=== PATIENT | female | born 1960 | race Caucasian/White ===

== ENCOUNTER 2017-03-26 13:45 | Emergency (ER) | payer OTHER ==
[~2017-03-26] VITALS: Ht 157.5 cm; Wt 74.8 kg
[~2017-03-26 13:45] MED LIST: LORA1TAB82 PO
[2017-03-26 14:11] VITALS: BP 157/65
== END 2017-03-26 14:31 | disposition home or self-care (01) ==
LOC: ER 13:46
DX: F41.9 Anxiety disorder, unspecified (principal); M54.30 Sciatica, unspecified side
CPT/HCPCS: 99284; A4606; Z7610

== ENCOUNTER 2020-07-12 13:49 | Emergency (ER) | payer OTHER ==
[~2020-07-12] VITALS: Ht 157.5 cm; Wt 83.9 kg
[~2020-07-12 13:49] MED LIST changes: +LORA-259 PO; -LORA1TAB82 PO
[2020-07-12 13:53] VITALS: BP 145/72
--- NOTE | 2020-07-12 14:00 | NUR ---
URINE SPECIMEN COLLECTED AND SENT TO LAB.
[2020-07-12 14:04] LABS: APPEARANCE,URINE Clear (CLEAR); BILIRUBIN,URINE Negative (NEGATIVE); BLOOD, URINE Small Ery/uL (NEGATIVE); COLOR,URINE Yellow (YELLOW); KETONES,URINE Negative (NEGATIVE); LEUKOCYTE ESTERASE ,URINE Negative (NEGATIVE); NITRITE, URINE Negative (NEGATIVE); PROTEIN,URINE Negative (NEGATIVE); UGLUCOSE Negative (NEGATIVE); UROBILINOGEN,URINE 0.2 EU/dL (0.2)
[2020-07-12 14:13] LABS: BACTERIA,URINE None seen /HPF (None Seen); SQUAMOUS EPITHELIAL CELL,UR Few /HPF (None Seen); WBC,URINE 0-1 /HPF (0-3)
--- NOTE | 2020-07-12 14:48 | NUR ---
Patient discharged to home in stable condition. Written and verbal after care instructions given. Patient verbalizes understanding of instruction.
== END 2020-07-12 14:49 | disposition home or self-care (01) ==
LOC: ER 13:54
DX: R30.0 Dysuria (principal); F41.9 Anxiety disorder, unspecified; Z79.899 Other long term (current) drug therapy
CPT/HCPCS: 81000-TC; 84703-TC

== ENCOUNTER 2020-08-03 14:46 | Emergency (ER) | payer OTHER ==
[~2020-08-03] VITALS: Ht 157.5 cm; Wt 70.3 kg
[2020-08-03 14:52] VITALS: BP 136/73
== END 2020-08-03 15:39 | disposition home or self-care (01) ==
LOC: ER 14:46
DX: F41.0 Panic disorder [episodic paroxysmal anxiety] (principal); Z79.899 Other long term (current) drug therapy